=== PATIENT | male | born 1945 | race Caucasian/White ===

== ENCOUNTER → 2024-09-30 | Outpatient (CLI) | payer MEDICARE, BC, SELFPAY ==
--- NOTE | 2024-09-30 12:00 | XR_ITS ---
Examination: MRI left hand, without contrast Date and time of exam: September 30, 2024 1254 hours INDICATIONS: Palpable mass palmar surface of the hand on the ulnar side beginning 3 months ago Technique: Multiple axial sagittal and coronal images of the left hand have been obtained with the Siemens high-resolution 1.5 [employer] MRI scanner. Images obtained include T2-weighted fat-suppressed sagittal sections, TR 3500, TE 46, T2 weighted coronal fat suppressed images, TR 3050, TE 84, T2-weighted transverse fat suppressed images, TR 3260, TE 63, proton density transverse images, TR 4720 TE 46, and T1 weighted coronal images, TR 560, TE 13. Findings: Ganglion cyst palmar to the distal ulna, 10 x 5 x 12 mm This arises between the fusiform and triquetrum No occult fracture or bone contusion Intact triangular fibrocartilage Flexor tendons intact Normal median nerve Tendinitis extensor carpi radialis brevis, extensor carpi radialis longus IMPRESSION: Ganglion cyst palmar to the distal ulna, 10 x 5 x 12 mm Tendinitis extensor carpi radialis brevis, extensor carpi radialis longus
== END | disposition home or self-care (01) ==
PROVIDERS: PCP Internal Medicine; Referring Provider Orthopaedic Surgery; Visit Provider Orthopaedic Surgery
DX: M67.442 Ganglion, left hand (principal); M77.8 Other enthesopathies, not elsewhere classified
CPT/HCPCS: 73218

== ENCOUNTER → 2025-05-20 | Outpatient (BNVA) | payer MEDICARE, BC, SELFPAY | END | disposition home or self-care (01) | PROVIDERS: PCP Internal Medicine; Referring Provider Internal Medicine; Visit Provider Urology | DX: C61 Malignant neoplasm of prostate (principal); R32 Unspecified urinary incontinence; I10 Essential (primary) hypertension; I25.10 Atherosclerotic heart disease of native coronary artery without angina pectoris; E66.9 Obesity, unspecified; Z68.28 Body mass index [BMI] 28.0-28.9, adult | CPT/HCPCS: 99212; G0463 ==